=== PATIENT | female | born 1945 | race Caucasian/White ===

== ENCOUNTER → 2023-08-25 15:01 | Outpatient (REF) | payer OTHER, SELFPAY ==
[2023-08-25 15:04] LABS: % Basophils 0.6 % (0-2); % Eosinophils 2.4 % (0-6); % Immature Granulocytes 0.3 % (0-0.5); % Lymphocytes 21.3 % (20.5-51.1); % Monocytes 6.6 % (1.7-9.3); % Neutrophils 68.8 % (42.2-75.2); Absolute Eosinophils 0.2 10^3/uL (0-0.7); Absolute Lymphocytes 1.5 10^3/uL (1.2-3.4); Absolute Monocytes 0.5 10^3/uL (0.1-0.6); Absolute Neutrophils 4.9 10^3/uL (1.4-6.5); Hematocrit 39.5 % (37.0-47.0); Hemoglobin 13.9 g/dL (12.0-16.0); Mean Corp Hgb Conc. 35.2 g/dL (33.0-37.0); Mean Corpuscular Hgb 34.8 pg (27.0-31.0); Mean Corpuscular Volume 98.8 fL (81.0-99.0); Mean Platelet Volume 9.8 fL (7.4-10.4); Nucleated Red Blood Cells % 0 %; Platelet Count 165 10^3/uL (130-400); Red Cell Dist. Width 13.1 % (11.5-14.5); White Blood Cell Count 7.2 10^3/uL (4.8-10.8)
[2023-08-25 18:09] LABS: Folate 9.5 ng/ml (2.76-20); Vitamin B12 361 pg/ml (239-931)
== END ==
LOC: OIDL 15:01
PROVIDERS: ATTENDING PHYSICIAN Internal Medicine Hematology & Oncology
DX: C50.919 Malignant neoplasm of unspecified site of unspecified female breast (principal); D51.9 Vitamin B12 deficiency anemia, unspecified
CPT/HCPCS: 82607; 82746; 85025

== ENCOUNTER → 2024-01-01 11:43 | Outpatient (REF) | payer OTHER, SELFPAY | LOC: RAD 11:43 | PROVIDERS: ATTENDING PHYSICIAN Internal Medicine; FAMILY PHYSICIAN Internal Medicine | DX: R05.1 Acute cough (principal) | CPT/HCPCS: 71046 ==

== ENCOUNTER → 2024-02-02 07:11 | Outpatient (REF) | payer OTHER, SELFPAY | LOC: HWWDC 07:11 | PROVIDERS: ATTENDING PHYSICIAN Internal Medicine | DX: Z12.31 Encounter for screening mammogram for malignant neoplasm of breast (principal) | CPT/HCPCS: 77063; 77067 ==

== ENCOUNTER → 2024-02-09 09:33 | Outpatient (REF) | payer OTHER, SELFPAY | LOC: WDC 09:33 | PROVIDERS: ATTENDING PHYSICIAN Internal Medicine | DX: R92.8 Other abnormal and inconclusive findings on diagnostic imaging of breast (principal) | CPT/HCPCS: 77065 ==

== ENCOUNTER → 2024-02-16 06:24 | Outpatient (REF) | payer OTHER, SELFPAY | LOC: WDC 06:24 | PROVIDERS: ATTENDING PHYSICIAN Internal Medicine | DX: R92.1 Mammographic calcification found on diagnostic imaging of breast (principal) | CPT/HCPCS: 88305; 19081; 76098; A4648 ==

== ENCOUNTER → 2024-02-16 14:15 | Outpatient (REF) | payer OTHER, SELFPAY ==
[2024-02-16 14:59] LABS: % Basophils 0.6 % (0-2); % Eosinophils 2.6 % (0-6); % Immature Granulocytes 0.3 % (0-0.5); % Lymphocytes 19.6 % (20.5-51.1); % Monocytes 7.4 % (1.7-9.3); % Neutrophils 69.5 % (42.2-75.2); Absolute Eosinophils 0.2 10^3/uL (0-0.7); Absolute Lymphocytes 1.3 10^3/uL (1.2-3.4); Absolute Monocytes 0.5 10^3/uL (0.1-0.6); Absolute Neutrophils 4.8 10^3/uL (1.4-6.5); Hematocrit 38.9 % (37.0-47.0); Hemoglobin 13.9 g/dL (12.0-16.0); Mean Corp Hgb Conc. 35.7 g/dL (33.0-37.0); Mean Corpuscular Hgb 35.6 pg (27.0-31.0); Mean Corpuscular Volume 99.7 fL (81.0-99.0); Mean Platelet Volume 9.9 fL (7.4-10.4); Nucleated Red Blood Cells % 0 %; Platelet Count 146 10^3/uL (130-400); Red Cell Dist. Width 13.5 % (11.5-14.5); White Blood Cell Count 6.9 10^3/uL (4.8-10.8)
[2024-02-16 16:18] LABS: Folate 16.2 ng/ml (2.76-20); Vitamin B12 413 pg/ml (239-931)
== END ==
LOC: OIDL 14:15
PROVIDERS: ATTENDING PHYSICIAN Internal Medicine Hematology & Oncology
DX: C50.919 Malignant neoplasm of unspecified site of unspecified female breast (principal)
CPT/HCPCS: 82607; 82746; 85025

== ENCOUNTER → 2024-03-14 11:20 | Outpatient (REF) | payer OTHER, SELFPAY | LOC: WDC 11:20 | PROVIDERS: ATTENDING PHYSICIAN Surgery; FAMILY PHYSICIAN Internal Medicine | DX: D05.92 Unspecified type of carcinoma in situ of left breast (principal) | CPT/HCPCS: 19281; A4648 ==

== ENCOUNTER 2024-03-15 06:13 | Day surgery (SDC) | payer OTHER, SELFPAY ==
[2024-03-04 09:45] LABS: % Basophils 0.5 % (0-2); % Eosinophils 2.7 % (0-6); % Immature Granulocytes 0.3 % (0-0.5); % Lymphocytes 15.9 % (20.5-51.1); % Monocytes 7.1 % (1.7-9.3); % Neutrophils 73.5 % (42.2-75.2); Absolute Eosinophils 0.2 10^3/uL (0-0.7); Absolute Lymphocytes 1.1 10^3/uL (1.2-3.4); Absolute Monocytes 0.5 10^3/uL (0.1-0.6); Absolute Neutrophils 4.9 10^3/uL (1.4-6.5); Hematocrit 38.7 % (37.0-47.0); Hemoglobin 13.6 g/dL (12.0-16.0); Mean Corp Hgb Conc. 35.1 g/dL (33.0-37.0); Mean Corpuscular Hgb 35.4 pg (27.0-31.0); Mean Corpuscular Volume 100.8 fL (81.0-99.0); Mean Platelet Volume 9.5 fL (7.4-10.4); Nucleated Red Blood Cells % 0 %; Platelet Count 150 10^3/uL (130-400); Red Blood Cell Count 3.84 10^6/uL (4.20-5.40); Red Cell Dist. Width 13.2 % (11.5-14.5); White Blood Cell Count 6.6 10^3/uL (4.8-10.8)
[2024-03-04 12:00] LABS: Prealbumin (Transthyretin) 15.6 mg/dl (17.6-36.0)
[2024-03-04 12:19] LABS: Vitamin D, 25-OH*** 25.3 ng/mL (30-80)
[2024-03-04 15:05] LABS: ALT (SGPT) 17 U/L (0-35); AST (SGOT) 28 U/L (14-36); Alkaline Phosphatase 84 U/L (38-126); Blood Urea Nitrogen 15 mg/dl (7-17); Calcium 9.5 mg/dl (8.4-10.2); Carbon Dioxide 23 mmol/L (22-30); Chloride 107 mmol/L (98-107); Glucose 91 mg/dl (70-99); Potassium 4.2 mmol/L (3.5-5.1); Sodium 143 mmol/L (135-145); Total Bilirubin 0.9 mg/dl (0.2-1.3); Total Protein 6.8 g/dl (6.3-8.2); eGFR > 60.00
[2024-03-15 06:10] VITALS: BMI 30.1
[2024-03-15 06:15] VITALS: BP 158/100
[2024-03-15 06:37] VITALS: BMI 30.1
[2024-03-15] MEDS: TYLENOL 1000 MG PO (06:44)
[2024-03-15] MEDS: LOVENOX 40 MG SC (06:47)
[2024-03-15 08:48] VITALS: BP 110/67
[2024-03-15 09:00] VITALS: BP 125/67
[2024-03-15 09:15] VITALS: BP 134/83
[2024-03-15 09:30] VITALS: BP 143/97
== END 2024-03-15 10:30 | disposition home or self-care (01) ==
LOC: SDS 06:13
PROVIDERS: ATTENDING PHYSICIAN Surgery; FAMILY PHYSICIAN Internal Medicine
DX: D05.12 Intraductal carcinoma in situ of left breast (principal); Z17.0 Estrogen receptor positive status [ER+]
CPT/HCPCS: 19301; 88305; 88307; 36415; 76098; 80053; 82306; 84134; 85025; A4648; L8000

== ENCOUNTER → 2024-04-17 08:35 | Outpatient (REF) | payer OTHER, SELFPAY | LOC: RAD 08:35 | PROVIDERS: ATTENDING PHYSICIAN Internal Medicine Hematology & Oncology; FAMILY PHYSICIAN Internal Medicine | DX: C50.919 Malignant neoplasm of unspecified site of unspecified female breast (principal); D51.9 Vitamin B12 deficiency anemia, unspecified; D52.9 Folate deficiency anemia, unspecified; M85.88 Other specified disorders of bone density and structure, other site; Z78.0 Asymptomatic menopausal state | CPT/HCPCS: 77080 ==

== ENCOUNTER → 2024-04-30 14:27 | Outpatient (REF) | payer OTHER, SELFPAY | LOC: RAD 14:27 | PROVIDERS: ATTENDING PHYSICIAN Internal Medicine | DX: R05.8 Other specified cough (principal); J31.0 Chronic rhinitis | CPT/HCPCS: 71046 ==

== ENCOUNTER 2024-05-29 06:34 | Outpatient (RCR) | payer OTHER, SELFPAY | END 2024-05-29 23:59 | disposition home or self-care (01) | LOC: RPT 06:34 | PROVIDERS: ATTENDING PHYSICIAN Internal Medicine Hematology & Oncology; FAMILY PHYSICIAN Internal Medicine | DX: I97.2 Postmastectomy lymphedema syndrome (principal); C50.912 Malignant neoplasm of unspecified site of left female breast; C50.911 Malignant neoplasm of unspecified site of right female breast; Z73.6 Limitation of activities due to disability; D51.9 Vitamin B12 deficiency anemia, unspecified; D52.9 Folate deficiency anemia, unspecified; G62.9 Polyneuropathy, unspecified | CPT/HCPCS: 97162; 97535 ==

== ENCOUNTER 2024-06-14 17:56 | Inpatient (IN) | payer OTHER, SELFPAY ==
[2024-06-14] VITALS (9 sets, daily range): BP systolic 130–167; BP diastolic 75–108; BMI 31.3; BMI 30.2
--- NOTE | 2024-06-14 13:24 | ED.GENMED ---
History of Present Illness
General
Chief Complaint: Head Injury
Source: patient
Time Seen by Provider: 06/14/24 12:59
History of Present Illness
History of Present Illness:
79yoF with a history of atrial fibrillation on Pradaxa, breast cancer s/p radiation, hypertension, hyperlipidemia, and hypothyroidism presenting for evaluation after a head injury. Patient started to not feel well last night with nausea and
vomiting. She has vomited 'a lot' since then. She got her nails done at her home this afternoon. She had an episode of vomiting afterwards. She was in her bedroom when she bent over and hit her head on the dresser. She is unsure if she lost
consciousness. No preceding dizziness. She denies any chest pain, shortness of breath, fevers, chills, diarrhea.
Past History
Past History
ED Past Medical History: Arrthythmia (Afib)
Patient has exhibited threatening behavior?: No
Social History
Personal: Single
Living: alone
Employment: Retired
Phy Exam
General Physical Exam
General Presentation: no apparent distress
General age: appears stated age
General Skin: warm and dry
General Habitus: normal
General Mental: alert
ENT Exam
ENT Exam: other (Large (approx 12cm) curved scalp laceration with flap. No exposed skull. Minimal venous oozing noted.)
Eye Exam
Eye Exam: PERRL
Cardiovascular Exam
Cardiovascular Exam: irregularly irregular and tachycardia
Pulmonary Exam
Pulmonary Exam: lungs clear and no respiratory distress
Gastrointestinal Exam
Gastrointestinal Exam: non tender, soft and non distended
Neurological Exam
Neurological Exam: alert
Nani Coma Scale
Eye Opening: Spontaneous
Verbal Response: Oriented
Motor Response: Obeys Commands
GCS Total Score: 15
Skin Exam
Skin Exam: normal color and warm/dry
Psychiatric Exam
Psychiatric Exam: normal mood/affect
Course
Orders/Labs/Results
Orders:
Orders
06/14/24 12:38
CT Head W/o Iv Contrast Urgent
Comment: on Pradaxa
Reason For Exam: head injury, unsure LOC
06/14/24 12:40
CT Cervical Spine W/o Iv Contr Urgent
Comment:
Reason For Exam: fall, neck pain
06/14/24 13:22
Electrocardiogram (*1) Urgent
Reason for Study: Other
Other Reason for Exam: nausea
Cardiac Monitoring- Treatment ONCE
EKG- Treatment ONCE
06/14/24 13:43
Electrocardiogram (*1) Urgent
Reason for Study: QTc Monitoring
EKG- Treatment ONCE
06/14/24 13:46
Complete Blood Count/With Diff Urgent
Comprehensive Metabolic Panel Urgent
Magnesium Urgent
PTT Urgent
Prothrombin Time Urgent
Troponin I Urgent
06/14/24 14:37
Ondansetron Injectable [Zofran] 4 mg IV NOW STA
06/14/24 15:12
0.9% Sodium Chloride 500 ml [Nss] 500 ml IV BOLUS
06/14/24 17:06
Metoprolol Xl [Toprol Xl] 100 mg PO NOW STA
Abnormal Lab Results
06/14/24
13:46
WBC 12.7 H 10^3/uL
(4.8-10.8)
RBC 4.11 L 10^6/uL
(4.20-5.40)
MCV 103.4 H fL
(81.0-99.0)
MCH 34.8 H pg
(27.0-31.0)
Absolute Neuts (auto) 12.2 H 10^3/uL
(1.4-6.5)
Absolute Lymphs (auto) 0.2 L 10^3/uL
(1.2-3.4)
Neutrophils % 96.5 H %
(42.2-75.2)
Lymphocytes % 1.7 L %
(20.5-51.1)
Monocytes % 1.3 L %
(1.7-9.3)
PT 16.3 H Sec
(11.4-14.6)
APTT 39.8 H Sec
(23.4-35.0)
BUN 24 H mg/dl
(7-17)
Glucose 125 H mg/dl
(70-99)
06/14/24 13:46
06/14/24 13:46
Vital Signs
Initial and Last Documented VS:
Initial Vital Signs
Temp Pulse Resp BP Pulse Ox
97.7 F 73 16 167/108 96
06/14/24 12:44 06/14/24 12:44 06/14/24 12:44 06/14/24 12:44 06/14/24 12:44
Last Documented Vital Signs
Temp Pulse Resp BP Pulse Ox
97.7 F 104 25 146/79 90
06/14/24 12:44 06/14/24 16:15 06/14/24 16:15 06/14/24 16:00 06/14/24 15:45
Procedures
Laceration Closure
Scalp:
Size of Wound in cm: 12
Description of Wound Edges: flap-well vascularized
Preparation: cleaned with saline
Anesthesia: 1% Lidocaine with epi
Wound exploration: extensive cleaning of contaminated wound and explored to base- no FB
Type of Closure: single layer closure
Skin Closure Material: skin wendy
Number of sutures: 17
MDM/Problems Addressed
Differential Diagnosis Includes:
79yoF here after a mechanical fall this afternoon. Arrives with a large scalp laceration from hitting her head against a dresser. Currently on Pradaxa. Also c/o n/v since last night. VSS. Large curved laceration present to scalp with flap. No other
signs of trauma on exam. Differential diagnosis includes but is not limited to: laceration, concussion, skull fracture, intracranial hemorrhage, gastroenteritis, dehydration, ACS
Initial ED plan: Check cardiac labs, magnesium, EKG, and CT head/CT cervical spine.
*EKG
Interpreted by ED Provider?: Yes
EKG Intrepretation Date: 06/14/24
Heart Rate: 114
Rate: tachycardiac
Rhythm: a-fib
[place]: left axis deviation
Ischemia: T-wave inversion (ST/T wave abnormality seen in V3-V6 and leads I and aVL)
*Critical Care Note
Total Time (30-74mins, 75-104mins- exclusive of procedures): Not Applicable
Update Note
Update Note:
Scalp laceration repaired as above. CT head and cervical spine negative for traumatic injuries. Labs reveal a leukocytosis with a white count of 12.7 which is likely reactive secondary to vomiting. EKG shows rapid atrial fibrillation with ST/T
wave changes in lateral leads which appear worse from prior EKG. Troponin WNL. Heart rate persistently in the 110 range during ED stay. IV fluid bolus ordered and she was admitted for observation.
ED Attending Note
-
Portions of this chart may have been created with voice recognition software.� Occasional wrong word or��sound alike� substitutions may have occurred due to the inherent limitations of voice recognition software.
Discharge Plan
Departure
Patient Disposition: Admit
Date of Disposition: 06/14/24
Time of Disposition: 16:22
Presentation/result/management discussed w/ accepting MD/DO: Hospitalist
Discharge Problem:
Laceration of scalp, Nausea & vomiting, Atrial fibrillation with RVR, Nonspecific abnormal electrocardiogram (ECG)
Prescriptions:
No Action
verapamil 180 MG tablet extended release
180 mg PO DAILY
levothyroxine 75 MCG tablet
75 mcg PO DAILY
metoprolol succinate 100 MG tablet extended release 24 hr
100 mg PO HS
losartan 25 MG tablet
25 mg PO DAILY
dabigatran etexilate [Pradaxa] 150 MG capsule
150 mg PO BID
cholecalciferol (vitamin D3) [Vitamin D3] 50 mcg (2,000 unit) Capsule
50 mcg PO DAILY
letrozole 2.5 mg tablet
2.5 mg PO DAILY
Referrals:
Jair Chilel MD [Family Provider] -
Interventions
Interventions:
*Risk Screen - Suicide Last Done: 06/14/24 12:44
*Neglect/Abuse Screening Last Done: 06/14/24 12:44
ED- Neurological Assessment Last Done: 06/14/24 14:33
ED-Skin Assessment Last Done: 06/14/24 14:33
Discharge Date and Time
Print Language: TAJIK
[2024-06-14 14:25] LABS: % Basophils 0.2 % (0-2); % Immature Granulocytes 0.3 % (0-0.5); % Lymphocytes 1.7 % (20.5-51.1); % Monocytes 1.3 % (1.7-9.3); % Neutrophils 96.5 % (42.2-75.2); Absolute Lymphocytes 0.2 10^3/uL (1.2-3.4); Absolute Monocytes 0.2 10^3/uL (0.1-0.6); Absolute Neutrophils 12.2 10^3/uL (1.4-6.5); Hematocrit 42.5 % (37.0-47.0); Hemoglobin 14.3 g/dL (12.0-16.0); Mean Corp Hgb Conc. 33.6 g/dL (33.0-37.0); Mean Corpuscular Hgb 34.8 pg (27.0-31.0); Mean Corpuscular Volume 103.4 fL (81.0-99.0); Mean Platelet Volume 9.6 fL (7.4-10.4); Nucleated Red Blood Cells % 0 %; Platelet Count 130 10^3/uL (130-400); Red Blood Cell Count 4.11 10^6/uL (4.20-5.40); Red Cell Dist. Width 13.6 % (11.5-14.5); White Blood Cell Count 12.7 10^3/uL (4.8-10.8)
[2024-06-14 14:36] LABS: INR 1.28; PT 16.3 Sec (11.4-14.6)
[2024-06-14 14:37] LABS: APTT 39.8 Sec (23.4-35.0)
[2024-06-14] MEDS: ZOFRAN 4 MG IV ×2 (14:41→22:39)
[2024-06-14 15:35] LABS: ALT (SGPT) 20 U/L (0-35); AST (SGOT) 29 U/L (14-36); Albumin 4.2 g/dl (3.5-5.0); Alkaline Phosphatase 67 U/L (38-126); Blood Urea Nitrogen 24 mg/dl (7-17); Calcium 9.1 mg/dl (8.4-10.2); Carbon Dioxide 24 mmol/L (22-30); Chloride 106 mmol/L (98-107); Estimated Creatinine Clearance 56 ml/min; Glucose 125 mg/dl (70-99); Magnesium 1.8 mg/dl (1.6-2.3); Potassium 3.8 mmol/L (3.5-5.1); Sodium 142 mmol/L (135-145); Total Bilirubin 0.9 mg/dl (0.2-1.3); Total Protein 7.2 g/dl (6.3-8.2); eGFR > 60.00
[2024-06-14 15:40] LABS: Troponin I < 0.012 ng/ml
[2024-06-14] MEDS: NSS 500 IV ×2 (15:48→23:36)
--- NOTE | 2024-06-14 17:01 | HPS.HSE ---
Family Physician
-
Family Physician: Jair Chilel
Chief Complaint
-
Fall and hit her head
History of Present Illness
HPI
79F lives alone HX AF on Pradaxa, breast cancer s/p XRT, hypertension, hyperlipidemia, and hypothyroidism seen at ER:
- evaluation after a head injury
- not feel well last night with nausea and vomiting - has vomited 'a lot' since then.
- she got her nails done at her home this afternoon also had an episode of vomiting afterwards.
- while in her bedroom when she bent over and hit her head on the dresser.
- she is unsure if she lost consciousness.
- she presented with large scalp laceration which was stapled.
ROS
No preceding dizziness.
denies any chest pain, shortness of breath, fevers, chills, diarrhea.
Medical History
Past Medical History
Past Medical History: Reports Arrhythmia (chr AF on Prdexa and BB ), HTN, Hypercholesterolemia and Hypothyroidism
Past Surgical History: Reports Other
Social History
Alcohol: None
Drug: None
Personal: Single
Living: Alone
Family History
Family History: Not pertinent
Allergies / Home Medications
Allergies reflects when Allergies were last updated in [facility].
Home Medications with original date entered in [facility]
Allergy/Medication List:
Allergies
Allergy/AdvReac Type Severity Reaction Status Date / Time
EDWARD Inhibitors Allergy cough Verified 06/14/24 12:57
adhesive Allergy skin rash Verified 06/14/24 12:57
erythromycin base Allergy Redness, Verified 06/14/24 12:57
[Erythromycin Base] swelling
olmesartan [From Benicar] Allergy COUGH Verified 06/14/24 12:57
pollen extracts Allergy SEASONAL Verified 06/14/24 12:57
ALLERGIES
Home Medications
levothyroxine 75 mcg tablet 75 mcg PO DAILY Thyroid 08/18/17
verapamil 180 mg tablet,extended release 180 mg PO DAILY Blood pressure 08/18/17
metoprolol succinate 100 mg tablet,extended release 24 hr 100 mg PO HS Blood pressure 03/09/18
dabigatran etexilate 150 mg capsule (Pradaxa) 150 mg PO BID Blood clot prevention/tx 03/04/22
losartan 25 mg tablet 25 mg PO DAILY 03/04/22
cholecalciferol (vitamin D3) 50 mcg (2,000 unit) capsule (Vitamin D3) 50 mcg PO DAILY 03/15/24
letrozole 2.5 mg tablet 2.5 mg PO DAILY 06/14/24
Review of Systems
-
Constitutional: Reports No Symptoms
EENT: Reports No Symptoms
Respiratory: Reports No Symptoms
Cardiac: Reports No Symptoms
Abdomen/GI: Reports No Symptoms
: Reports No Symptoms
Musculoskeletal: Reports No Symptoms
Skin: Reports No Symptoms
Neurological: Reports No Symptoms
Endocrine: Reports No Symptoms
Hematologic/Lymphatic: Reports No Symptoms
Psych: Reports No Symptoms
Physical Exam
Vital Signs
Vital Signs
Temp Pulse Resp BP Pulse Ox
97.7 F 104 25 146/79 90
06/14/24 12:44 06/14/24 16:15 06/14/24 16:15 06/14/24 16:00 06/14/24 15:45
Physical Exam
General: No Apparent Distress, Comfortable and Conversant
HEENT: NormoCephalic (large stapled laceration at Lt scalp ) and PERRLA
Respiratory: Clear; No Wheezes, Rales or Rhonchi
Cardiac: S1/S2, Irregular Rhythm and Tachycardia
Breast: Deferred by me
GI: Soft, Non Tender, Non Distended and Normal Bowel Sounds
Rectal: Deferred by Provider
Genito-urinary: Deferred by me
Musculoskeletal: No Edema
Skin: Other (as above )
Neuro: AO x 3, No Motor Deficits and Nonfocal/grossly intact
Psych: Calm
Laboratory Results
-
06/14/24 13:46
06/14/24 13:46
Laboratory Results
PT 16.3 Sec (11.4-14.6) H 06/14/24 13:46
INR 1.28 06/14/24 13:46
APTT 39.8 Sec (23.4-35.0) H 06/14/24 13:46
Total Bilirubin 0.9 mg/dl (0.2-1.3) 06/14/24 13:46
AST 29 U/L (14-36) 06/14/24 13:46
ALT 20 U/L (0-35) 06/14/24 13:46
Alkaline Phosphatase 67 U/L (38-126) 06/14/24 13:46
Troponin I < 0.012 ng/ml 06/14/24 13:46
Data Reviewed
-
CT Scan: Report Reviewed by me
Lab Data: Labs Reviewed by me
Old Records: Reviewed
Impression/Plan
-
Data
03/04/24 06/14/24
09: 13:46
WBC 6.6 12.7 H
Hgb 13.6 14.3
MCV 100.8 H
Plt Count 130
INR 1.28
BUN 24 H
Creatinine 0.8
eGFR > 60.00
Troponin I < 0.012
CXR:
EKG
ATRIAL FIBRILLATION WITH RAPID VENTRICULAR RESPONSE
MINIMAL VOLTAGE CRITERIA FOR LVH, MAY BE NORMAL VARIANT ( [place] product )
ST and T WAVE ABNORMALITY, CONSIDER ANTEROLATERAL ISCHEMIA
ABNORMAL ECG
WHEN COMPARED WITH ECG OF 14-JUN-2024 13:39,
NO SIGNIFICANT CHANGE WAS FOUND
Confirmed by TAYLOR PEACOCK, EMILIANA ([id number]) on 06/14/2024 2:50:31 PM
10/30/23 ECHO
Estimated left ventricular ejection fraction is 50-55%.
Marked biatrial enlargement
Mild to moderate, eccentric mitral regurgitation.
Mildly dilated ascending aorta.
Previous report 03/23/2021 LVEF was 45% with mild global hypokinesis, with similar mild-moderate MR.
CT Cervical Spine W/o Iv Contr
Straightening of the normal cervical lordotic curvature.
Degenerative changes.
No findings to suggest recent cervical spine fracture.
HCT
Small old lacunar infarct in the right thalamus.
No acute intracranial abnormality.
Last hospitalist admission:
DATE OF ADMISSION: 08/18/2017 - DATE OF DISCHARGE: 08/23/2017
DISCHARGE DIAGNOSES:
1. Right hip hematoma secondary to fall due to Pradaxa.
2. Acute blood loss anemia due to right hip hematoma, but did not require
transfusion.
3. History of permanent atrial fibrillation.
4. Hypertension.
5. Hypothyroidism.
ASSESSMENT & PLAN
Pending Rx reconciliation
Fall complicated by large scalp laceration s/p stapled.
- NEG HCT for acute pathology
- on chr Pradaxa for AF
- Neuro obs and check
- Repeat HCT with any AMS
Abnormal EKG but no significant change per Dr Goodwin report
Troponin WNL
Denies any chest pain, shortness of breath
- TLM monitor
- trend TPNI
HX chr AF with RVR
Pending Rx reconciliation
- on Pradaxa
- add IV Metoprol 5mg q6 Hr PRN for HR > 120
- cont. Metoprolol sux [address] then daily QAM instead of HS
Chronic condition
HX breast cancer s/p XRT on Letrozole
Benign hypertension on Losartan - stable
Hyperlipidemia not on statin ; check lipids
Hypothyroidism on LT4
DVT Px: on chr Pradaxa
Code: full
IP TLM
[2024-06-14] MEDS: TOPROL XL 100 MG PO (17:25)
--- NOTE | 2024-06-14 20:00 | PTCARENOTE ---
Pt received from ED at 1940. Pt pleasant, AAOX3, VSS, and able to ambulate into room with assistance X1. Pt presents with large laceration on the parietal area of the scalp noted to have 17 wendy and moderate amount of dried blood. Pt does not
complain of any nausea, dizziness, or pain at this time. Pt receptive to room and call ramon. Pt bed in lowest position and call ramon within reach. Pt educated on importance of call ramon usage and pt relays understanding and cooperation. Will
continue with current plan of care.
--- NOTE | 2024-06-14 20:30 | RR ---
A Rapid Response was called on this patient, please see Rapid Response form.
Pt had an unwitnessed fall in the bathroom. Pt found laying on back with her head on the ground bleeding from existing laceration. Pt also bleeding from back of head. Pt started vomiting large amounts; pt turned on side and sat up. Pt had no loss of
consciousness. Rapid response team called. IV antiemetics administered, Pt taken for head CT, IVF bolus administered. Head laceration bleeding moderate amount, pressure dressing applied. Neuro checks Q4h.
--- NOTE | 2024-06-14 20:30 | FALL ---
Description of Fall:
Pt had an unwitnessed fall in the bathroom. Pt found laying on back with her head on the ground bleeding from existing laceration. Pt also bleeding from back of head. Pt started vomiting large amounts; pt turned on side and sat up. Pt had no loss of
consciousness. Rapid response team called.
Injuries Noted:
Back of head - laceration.
Action Taken:
Rapid response called. IV antiemetics administered. Head CT done.
Name of Provider Notified: LARISA Neri.
[2024-06-14] MEDS: PRADAXA 150 MG PO (21:07)
[2024-06-14] MEDS: TYLENOL 650 MG PO (21:07)
--- NOTE | 2024-06-14 22:40 | W.PN.UPDATE ---
Update Note
Progress Note Update
Rapid response
RN reported patient with unwitnessed fall. Upon arrival, patient was laying flat with head on the floor and admits head was hit. Noted blood on the floor, new laceration noted in posterior part of the head. Bleeding stopped after placing pressure.
Staple in place at scalp, oozing blood at the time of fall, which stopped as well. Dressing placed by RN. stable [place].
CT scan, labs and neurochecks per unit guidelines. Results noted.
CT scan No intracranial Hemorrhage.
Patient nauseous and vomited large amount once, IV Zofran given without relief, IV Compazine given once. Nausea vomiting subsided, IV Bolus 500 cc given, Fall precautions advised.
[2024-06-14 22:51] LABS: Hematocrit 40.1 % (37.0-47.0); Mean Corp Hgb Conc. 34.9 g/dL (33.0-37.0); Mean Corpuscular Hgb 35.3 pg (27.0-31.0); Mean Platelet Volume 9.7 fL (7.4-10.4); Platelet Count 142 10^3/uL (130-400); Red Blood Cell Count 3.97 10^6/uL (4.20-5.40); Red Cell Dist. Width 13.6 % (11.5-14.5); White Blood Cell Count 10.1 10^3/uL (4.8-10.8)
[2024-06-14 23:40] LABS: Blood Urea Nitrogen 27 mg/dl (7-17); Calcium 8.7 mg/dl (8.4-10.2); Carbon Dioxide 24 mmol/L (22-30); Chloride 104 mmol/L (98-107); Estimated Creatinine Clearance 55 ml/min; Glucose 115 mg/dl (70-99); Sodium 138 mmol/L (135-145); eGFR > 60.00
[2024-06-14] MEDS: COMPAZINE 10 MG IV (23:46)
[2024-06-15] VITALS (14 sets, daily range): BP systolic 124–182; BP diastolic 56–122; BMI 29.6
[2024-06-15] MEDS: TYLENOL PO ×4 (00:10→11:18)
[2024-06-15] MEDS: SYNTHROID 75 MCG PO (05:30)
[2024-06-15 07:01] LABS: Hematocrit 38.8 % (37.0-47.0); Hemoglobin 12.8 g/dL (12.0-16.0); Mean Corpuscular Hgb 34.7 pg (27.0-31.0); Mean Corpuscular Volume 105.1 fL (81.0-99.0); Mean Platelet Volume 10.2 fL (7.4-10.4); Platelet Count 127 10^3/uL (130-400); Red Blood Cell Count 3.69 10^6/uL (4.20-5.40); Red Cell Dist. Width 13.7 % (11.5-14.5); White Blood Cell Count 9.3 10^3/uL (4.8-10.8)
[2024-06-15 07:34] LABS: ALT (SGPT) 20 U/L (0-35); AST (SGOT) 32 U/L (14-36); Albumin 3.7 g/dl (3.5-5.0); Alkaline Phosphatase 56 U/L (38-126); Blood Urea Nitrogen 23 mg/dl (7-17); Calcium 8.4 mg/dl (8.4-10.2); Carbon Dioxide 22 mmol/L (22-30); Chloride 106 mmol/L (98-107); Estimated Creatinine Clearance 63 ml/min; Glucose 122 mg/dl (70-99); HDL Cholesterol 40 mg/dl; LDL Cholesterol, Calculated 81 mg/dl; Potassium 3.8 mmol/L (3.5-5.1); Sodium 142 mmol/L (135-145); Total Bilirubin 0.8 mg/dl (0.2-1.3); Total Cholesterol 134 mg/dl (50-199); Total Protein 6.5 g/dl (6.3-8.2); Triglyceride 67 mg/dl (10-149); Very Low Density Lipoprotein 13 mg/dl (0-30); eGFR > 60.00
[2024-06-15 08:30] LABS: Glucose - Point of Care 113 mg/dl (70-99)
--- NOTE | 2024-06-15 08:59 | CON.NEURO ---
Neuro Assessment/Plan
Assessment
Abrupt onset aphasia
Most likely secondary to newly discovered left temporal intraparenchymal hemorrhage which is secondary to trauma.
Plan
Consult neurosurgery, done
Serial CTs of head to determine if expansion of the hemorrhage takes place
Evaluation of the patient in the intensive care setting
Reversal of the patient's usual dabigatran, with consideration for restart approximately 48 hours after symptomatology initiation
Goal of systolic blood pressure less than 140, greater than 100
Rehabilitation evaluations
Consider EEG
No clear indication patient would benefit from antiseizure medication at this time
Total Critical Care Time=�45 minutes.
The neurological system is affected and the action required by me to prevent further deterioration or potential was control over the item listed first in the Impressions and Recommendations section of this note.
I was present and personally examined the patient.� I discussed patient care with other professional health care providers.
Will follow
Consultation
Order
Date of Consultation: 06/15/24
Requesting Provider: Hospitalists
Reason for Consult: Stroke alert
Subjective/Objective
Subjective Data
Date of Service: June 15, 2024
Patient presented to this hospital's emergency department after having a fall at home. This fall took place after feeling unwell and experiencing nausea and emesis. The patient reported that she did strike her head leading to more nausea and
emesis. Subsequently, after presenting to this hospital, the patient fell in an unwitnessed way. The patient again struck her head with a new laceration in the posterior head. Due to continued emesis, the patient was given antiemetics. She
developed aphasia this morning leading to this consultation. The patient herself is unable to provide her own medical history.
Objective Data
Vital Signs
Temp Pulse Resp BP Pulse Ox
37.7 C 108 20 154/100 94
06/15/24 06:51 06/15/24 06:51 06/15/24 06:51 06/15/24 06:51 06/15/24 06:51
Lab Results
06/15/24 06:10
06/15/24 06:10
PT 16.3 Sec (11.4-14.6) H 06/14/24 13:46
INR 1.28 06/14/24 13:46
APTT 39.8 Sec (23.4-35.0) H 06/14/24 13:46
Sodium 142 mmol/L (135-145) 06/15/24 06:10
Potassium 3.8 mmol/L (3.5-5.1) 06/15/24 06:10
BUN 23 mg/dl (7-17) H 06/15/24 06:10
Glucose 122 mg/dl (70-99) H 06/15/24 06:10
Calcium 8.4 mg/dl (8.4-10.2) 06/15/24 06:10
LDL Cholesterol, Calc 81 mg/dl 06/15/24 06:10
Patient Allergies
EDWARD Inhibitors Allergy (Verified 06/14/24 12:57)
cough
adhesive Allergy (Verified 06/14/24 12:57)
skin rash
erythromycin base [Erythromycin Base] Allergy (Verified 06/14/24 12:57)
Redness, swelling
olmesartan [From Benicar] Allergy (Verified 06/14/24 12:57)
COUGH
pollen extracts Allergy (Verified 06/14/24 12:57)
SEASONAL ALLERGIES
CVA Assessment
Onset of Stroke Symptoms
Onset of symptoms known: No
Date of onset of symptoms: 06/15/24
Time of onset of symptoms: 08:00
Time pt last seen normal is known: Yes
Date last time pt seen normal: 06/15/24
Time last time pt seen normal: 04:00
NIH Stroke Score
Level of Consciousness: 1 - Arousable
LOC Questions: 1-Answers one correctly
LOC Commands: 1-Performs one correctly
Best Horizontal Gaze: 0-Normal
Visual [place]: 0=Normal, no visual loss
Facial Palsy: 0=Normal, symmetrical
Motor - Right Arm: 0=No drift 10 seconds
Motor - Left Arm: 0=No drift 10 seconds
Motor - Right Le-No drift 5 seconds
Motor - Left Le-No drift 5 seconds
Limb Ataxia: 0-Absent
Sensation: 0-Normal
Best Language: 1-Mild aphasia
Dysarthria: 0-Normal
Extinction and Inattention: 0-No abnormality
Total Score:: 4
Tenecteplase Contraindications
Inclusion and Exclusion criteria reviewed: Yes
Reasons for NON-Tx with Thrombolytics ABSOLUTE Exclusions: Evidence of intracranial hemorrhage on pre-treatment CT head
IAT Contraindications: Intracranial hemorrhage on CT
Review of Systems
-
Unable to obtain full review of systems at this time due to: Lethargy
History Source: Patient
All other systems: Reviewed and negative
Neuro: Negative Dizzy or Headache
Physical Exam
-
General: No Apparent Distress and Appears Stated Age
Eyes: Round OU, [place] Conjunctivae and No Ptosis; Negative Able to visualize OU
HEENT: Anicteric, Moist Mucous Membranes and Other (Head wrapped well with gauze)
Neck: Full Range of Motion
Respiratory: No Dyspnea
Cardiac: No JVD
GI: Non-distended
Skin: Unremarkable
Extremities: No Clubbing, No Cyanosis and No Edema
Psych: Negative Intact Judgement/Insight
Extended Neurological Exam
Mood & Affect: Mood Unremarkable and Affect Unremarkable
Attention Span & Concentration: Awake, Alert, Interactive, Moderate Difficulty with 2 Step Request and Other (Minimal difficulty with one-step requests)
Memory: Able to Recall (own name), Reduced (For location) and Unable to Recall Personal History
Tremor: Hand Tremor Absent and Head Tremor Absent
Involuntary Movement: None
Speech: Quality Unremarkable and Severely Reduced Output; Negative Dysarthric
Cranial Nerve II: Left Eye: Pupillary Reactivity Unremarkable, Pupillary Size Unremarkable and Visual Lezama Intact
Cranial Nerve II: Right Eye: Pupillary Reactivity Unremarkable, Pupillary Size Unremarkable and Visual Lez[place] Intact
Cranial Nerves III, IV, : Extraocular Movement: Extraocular Movement Full in all Directions
Cranial Nerve VII: Facial Symmetry: Normal Facial Symmetry
Cranial Nerve VIII: Hearing: Unremarkable Hearing to Normal Conversational Volume
Cranial Nerves IX, X: Palate Movement: Palate Elevation Symmetric
Cranial Nerve XI: Shoulder Shrug: Unremarkable
Cranial Nerve XII: Tongue Protusion: Midline
Muscle Strength, Overall: Full Throughout
Muscle Bulk & Tone: Bulk Unremarkable and Tone Unremarkable
Pronator Drift: No Drift in Upper Extremities
Deep Tendon Reflexes: Trace Throughout
Touch Sensation: Unremarkable
Coordination: [id number] Testing Unremarkable
Babinski Sign: Absent Bilaterally
Gait & Station: Unable to Assess
Data Reviewed
-
CT Head: Report Reviewed and Image Reviewed
Labs: Report Reviewed
Reviewed with: Physician, Nurse and Patient
Old Records: Summarized
Medications
-
Active Medications
Generic Name Dose Route Start Last Admin
Trade Name Freq PRN Reason Stop Dose Admin
Acetaminophen 650 mg 06/14/24 20:00 06/15/24 04:00
Acetaminophen 325 Mg Tablet PO 07/12/24 19:59 Not Given
Q4HWA SUMI
Bisacodyl 10 mg 06/14/24 19:32
Bisacodyl 10 Mg Rectal Suppository RECTAL 07/12/24 19:31
[id number] PRN
constipation
Heparin Sodium (Porcine) 500 unit 06/14/24 23:15 06/15/24 00:57
Heparin Flush Pf (100 Unit/Ml) 5 Ml Syringe IV 07/12/24 23:14 500 unit
PER PROTOCOL SUMI Administration
Letrozole 2.5 mg 06/15/24 08:00
Letrozole 2.5 Mg (Non-Form) Tablet PO 07/13/24 07:59
DAILY SUMI
Levothyroxine Sodium 75 mcg 06/15/24 06:00 06/15/24 05:30
Levothyroxine 75 Mcg Tablet PO 07/13/24 05:59 75 mcg
DAILY @ 0600 SUMI Administration
Lidocaine 1 patch 06/15/24 08:00
Lidocaine 4% Topical Patch TOPICAL 07/13/24 07:59
DAILY SUMI
Protocol
Losartan Potassium 25 mg 06/15/24 08:00
Losartan 25 Mg Tablet PO 07/13/24 07:59
DAILY SUMI
Metoprolol Succinate 100 mg 06/15/24 22:00
Metoprolol 100 Mg Extended Release Tablet PO 07/13/24 21:59
HS SUMI
Patch Removal 1 patch 06/15/24 20:00
Remove Lidocaine Patch REMOVE 07/13/24 19:59
DAILY@2000 SUMI
Polyethylene Glycol 17 grams 06/14/24 19:32
Polyethylene Glycol Powder 17 Grams Packet PO 07/12/24 19:31
DAILYPRN PRN
constipation
Senna/Docusate Sodium 1 tablet 06/14/24 19:32
Docusate W/Senna (Margaret-Colace) Tablet PO 07/12/24 19:31
BIDPRN PRN
constipation
Sodium Chloride 0 flush 06/14/24 20:00
Sodium Chloride 0.9% (Flush) Syringe IV 07/12/24 19:59
PER PROTOCOL SUMI
Home Medications
�Medication �Instructions �Recorded
levothyroxine 75 mcg tablet 75 mcg PO DAILY Thyroid 08/18/17
verapamil 180 mg tablet,extended 180 mg PO DAILY Blood pressure 08/18/17
release
metoprolol succinate 100 mg 100 mg PO HS Blood pressure 03/09/18
tablet,extended release 24 hr
dabigatran etexilate 150 mg 150 mg PO BID Blood clot 03/04/22
capsule (Pradaxa) prevention/tx
losartan 25 mg tablet 25 mg PO DAILY 03/04/22
cholecalciferol (vitamin D3) 50 50 mcg PO DAILY 03/15/24
mcg (2,000 unit) capsule (Vitamin
D3)
letrozole 2.5 mg tablet 2.5 mg PO DAILY 06/14/24
Past History
Past History
ED Past Medical History: Arrthythmia (Afib), Cancer (Bilateral 1993, left breast DCIS 2023), CVA (Small left temporal intraparenchymal hemorrhage June 2024), HTN, Hypercholesterolemia, Hypothyroidism and Other (Osteoporosis, vitamin D deficiency)
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
2019)
Patient has exhibited threatening behavior?: No
Social History
Tobacco: Non-smoker
Alcohol: Occasional
Personal: Single
Living: alone
Employment: Retired
Family History
Family History: Other (Reviewed and noncontributory)
--- NOTE | 2024-06-15 09:00 | PTCARENOTE ---
Received pt. s/p rapid response into ICU rm [id number] w neuro to bedside[address] scan during rapid showing bleed; neuro checks initiated Q1H- pt. able to NINA; pupils 3mm/sluggish b/l; moderate expressive aphasia. Goal SBP per neuro <140; Cardene gtt not
initiated, BP already in goal range. Plan to transfer to [facility]; awaiting bed placement. Pt. informed on plan of care. Servicing Rep updated family contact via phone.
[2024-06-15] MEDS: PRADAXA PO (09:21)
--- NOTE | 2024-06-15 09:22 | RR ---
A Rapid Response was called on this patient, please see Rapid Response form. Upon assessment this morning pt was very sleepy. arousable to voice . Neuro check performed and GCS was 12. pt unable to answer questions, repetitive speech. bilateral
lower extremities weak. pupils 2 and sluggish. Rapid called. Pt taken to CT Scan by ICU nurses. Neurology at bedside post CT. Pt found to have bleeding on ct scan. Transferred to ICU.
--- NOTE | 2024-06-15 09:28 | CON.INTV ---
Consultation
Consultation Request
Date/Time Consultation Requested: 06/15/2024929
Date/Time Consultation Performed: 06/15/2024924
Requesting Provider: Dr. Stephen
Performing Provider: Dr. Pinon
Reason for Consultation: Acute IPH
Medical History
-
Chief Complaint: Fall
History of Present Illness:
79-year-old female non-smoker with a past medical history of right-sided breast cancer s/p mastectomy with lymphadenectomy, history of vertigo, chronic HFpEF, A-fib on Pradaxa, hypothyroidism, kidney cyst and moderate mitral regurgitation who
presents with fall out of bed this morning and hit the dresser. She was nauseous and vomiting the day prior. She is on sure if she lost consciousness during her fall. She denies any preceding chest pain, shortness of breath or dizziness.
Initially in the ER she was hypertensive to 167/108, pulse rate 73, breathing at 16 breaths/min, saturating 96% on room air and afebrile to 97.7 �F. Initial labs showed mild leukocytosis of 12.7, Hb 14.3, platelets 130, INR 1.28, troponin negative
at <0.[address] and glucose [address] Initial [address] head showed a small old lacunar infarct in the right thalamus with no acute intracranial abnormality. CT cervical spine showed no fracture. In the ER she was given IVF with NS 0.9% x 500cc. She was admitted
to telemetry for further management. Unfortunately on 06/14 in the evening hours she had an unwitnessed fall and was found laying flat with head on the floor and admitted that her head hit the ground. There was blood on the floor with a laceration
noted in the posterior part of her head. Bleeding stopped after holding pressure. Repeat CT head showed a posterior scalp contusion/laceration with no skull fracture and no acute intracranial hemorrhage. Patient developed expressive aphasia and a
stroke alert was called on the morning of 06/15, and CT head showed a 1.6 cm acute intraparenchymal hemorrhage in the posterior left temporal lobe. Neurology + neurosurgery were consulted. Patient transferred to the ICU for further care and
mica layer services consulted for additional management/recommendations.
When I saw the patient she was tachycardic to 110, BP 144/76, and she is saturating 94% on room air. She denies headache, chest pain, SOB, fevers or chills, although HPI/ROS is limited due to expressive aphasia. She is in no acute distress however.
PMHx: History of breast cancer/DCIS(ER positive), vertigo, knee osteoarthritis, chronic HFpEF, A-fib on Pradaxa, NICM, moderate MR, hypercholesterolemia, primary hypothyroidism, bilateral cataracts, kidney cyst
PSHx: Skin cancer resection, hysterectomy, cholecystectomy, right-sided total mastectomy with lymphadenectomy, left leg ruptured ACL s/p surgery, cataract surgery, left eye wart removal, torn rotator cuff surgery, port implantation, bilateral TKA,
left-sided localized lumpectomy (03/15/2024)
Past Medical History
Past Medical History: Other (Above as per HPI)
Past Surgical History: Other (Above as per HPI)
Social History
Tobacco: Non-smoker
Alcohol: Occasional (Social)
Drug: None
Family History
Family History: CAD (Father), Cancer (Mother: Cholangiocarcinoma) and Diabetes (Father)
Allergies / Home Medications
Allergies
Allergy/AdvReac Type Severity Reaction Status Date / Time
EDWARD Inhibitors Allergy cough Verified 06/14/24 12:57
adhesive Allergy skin rash Verified 06/14/24 12:57
erythromycin base Allergy Redness, Verified 06/14/24 12:57
[Erythromycin Base] swelling
olmesartan [From Benicar] Allergy COUGH Verified 06/14/24 12:57
pollen extracts Allergy SEASONAL Verified 06/14/24 12:57
ALLERGIES
Home Medications
�Medication �Instructions �Recorded �Confirmed �Last Taken �Type
levothyroxine 75 mcg tablet 75 mcg PO DAILY Thyroid 08/18/17 06/14/24 06/13/24 History
verapamil 180 mg tablet,extended 180 mg PO DAILY Blood pressure 08/18/17 06/14/24 06/13/24 History
release
metoprolol succinate 100 mg 100 mg PO HS Blood pressure 03/09/18 06/14/24 06/13/24 History
tablet,extended release 24 hr
dabigatran etexilate 150 mg 150 mg PO BID Blood clot 03/04/22 06/14/24 06/13/24 History
capsule (Pradaxa) prevention/tx
losartan 25 mg tablet 25 mg PO DAILY 03/04/22 06/14/24 06/13/24 History
cholecalciferol (vitamin D3) 50 50 mcg PO DAILY 03/15/24 06/14/24 06/13/24 History
mcg (2,000 unit) capsule (Vitamin
D3)
letrozole 2.5 mg tablet 2.5 mg PO DAILY 06/14/24 06/14/24 06/13/24 History
Review of Systems
-
Unable to Obtain full review of systems at this time due to: Acuity
Vitals / Labs / Diagnostic Testing
Vital Signs
Temp Pulse Resp BP Pulse Ox
99.8 F 108 20 154/100 94
06/15/24 06:51 06/15/24 06:51 06/15/24 06:51 06/15/24 06:51 06/15/24 06:51
Lab Data
06/15/24 06:10
Laboratory Results
06/14/24
13:46
PT 16.3 H
INR 1.28
APTT 39.8 H
Diagnostic Testing:
Physical Exam
-
HEENT: Anicteric and Other (Bandage wrapped around head)
Cardiovascular: S1/S2, Murmur (negative), Peripheral Edema (trace LE edema b/l) and Other (Tachycardic)
Respiratory: Wheeze (negative), Rales (negative), Rhonchi (negative) and Accessory Resp Muscle Use (negative)
GI: Soft, Non Distended, Non Tender and Normal Bowel Sounds
Neurology: Awake, Alert, Tremors (negative), Other (Demand Planner strength: 4/5 right upper extremity, 5/5 left upper extremity, plantarflexion: 4/5 bilaterally, unable to perform plantar-flexion as not understanding my question) and Other (Cranial nerve
exam was limited due to expressive aphasia: She was able to shrug shoulders, she was able to smile without any evidence of nasolabial flattening, able to protrude tongue out and move it laterally although this was a weak, intact sensation to her
arms, legs and face)
Skin: Warm and Dry
General: Respiratory Distress (negative), Comfortable, Fever (negative) and Chills (negative)
Assessment
-
Assessment: 79-year-old female non-smoker with a past medical history of right-sided breast cancer s/p mastectomy with lymphadenectomy, history of vertigo, chronic HFpEF, A-fib on Pradaxa, hypothyroidism, kidney cyst and moderate mitral
regurgitation who presents with fall out of bed this morning and hit the dresser. She was nauseous and vomiting the day prior. She is on sure if she lost consciousness during her fall. She denies any preceding chest pain, shortness of breath or
dizziness. Initially in the ER she was hypertensive to 167/108, pulse rate 73, breathing at 16 breaths/min, saturating 96% on room air and afebrile to 97.7 �F. Initial labs showed mild leukocytosis of 12.7, Hb 14.3, platelets 130, INR 1.28,
troponin negative at <0.012 and glucose [address] Initial [address] head showed a small old lacunar infarct in the right thalamus with no acute intracranial abnormality. CT cervical spine showed no fracture. In the ER she was given IVF with NS 0.9% x 500cc.
She was admitted to telemetry for further management. Unfortunately on 06/14 in the evening hours she had an unwitnessed fall and was found laying flat with head on the floor and admitted that her head hit the ground. There was blood on the floor
with a laceration noted in the posterior part of her head. Bleeding stopped after holding pressure. Repeat CT head showed a posterior scalp contusion/laceration with no skull fracture and no acute intracranial hemorrhage. Patient developed
expressive aphasia and a stroke alert was called on the morning of 06/15, and CT head showed a 1.6 cm acute intraparenchymal hemorrhage in the posterior left temporal lobe. Neurology + neurosurgery were consulted. Patient transferred to the ICU for
further care and mica layer services consulted for additional management/recommendations.
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
Impression:
#Traumatic (recurrent fall) acute intraparenchymal hemorrhage (1.[address] head on 06/15/2024)
#Confusion/expressive aphasia due to above
#Fall with posterior scalp contusion/laceration
#Thrombocytopenia (chronic with platelet count ranging between 65�200 for the last several years)
#Chronic lacunar infarct in right thalamus
#History of right-sided breast cancer s/p mastectomy + lymphadenectomy
#History of vertigo
#Chronic HFpEF
#A-fib on Pradaxa
Plan:
- Patient is being prepared to be transferred to [facility] trauma center
- Neurology and neurosurgery consulted - recs appreciated
- Patient received Praxbind today given that she takes Pradaxa and now with acute intraparenchymal hemorrhage
- Patient may need neurosurgical intervention for surgical decompression
- No evidence for midline shift at this time; hence no need for osmotic therapy at this juncture
- Strict BP goal with SBP<140mmHg ---> may need cardene gtt
- Maintain MAP>65
- Neurochecks q1hr + NIH SS; immediate CT head for any significant change in neurochecks or NIH stroke scale or neurological clinical status
- No current seizures seen, hence no need for AED at this time
- Monitor for fevers
- Will need PT/OT and MECHANICAL REPAIR WORKER --> Keep NPO for now; can do bedside RN swallow eval to see if safe for PO meds, but would not let pt eat until MECHANICAL REPAIR WORKER sees the pt
- Bedrest for now, and would keep HOB elevated to help reduce ICP
- Fall precautions
- Aspiration precautions
- Maintain SpO2 >90-94% with supplemental oxygen if needed
- Replete electrolytes with K>4, Mg>2
- Maintain euglycemia with goal BG 140-180
- Trend H/H and transfuse if needed to keep Hb>7g/dL; keep plt>100k
- prn nebulized bronchodilators - not currently bronchospastic
- No need for stress ulcer ppx given she is not intubated and no hx of GIB
- DVT ppx: SCDs for now
Patient has a bed and is awaiting transport to [facility]. Once transferred then we will sign off. Thank you for allowing us to be involved in the care of this patient.
Critical care statement: A total of 37 minutes of critical care time was provided for this patient today. This includes management of unstable vital signs, evaluation of the patient at bedside, reviewing the patient's pertinent medical records
including radiographs, microbiology, laboratory evaluations, and discussion with primary team, consultants, pharmacy, nutrition, physical therapy, case management, charge nurse, critical care nursing, and respiratory therapy.
Data:
CT head 06/15/2024:
Evaluation somewhat limited due to motion artifact.
Findings suspicious for approximate 1.6 cm acute intraparenchymal hemorrhage in the posterior left temporal lobe.
Cannot exclude small left anterior parafalcine acute subdural hematoma.
[2024-06-15] MEDS: IDARUCIZUMAB 50 IV ×2 (09:29→09:45)
--- NOTE | 2024-06-15 10:42 | W.PN.UPDATE ---
Update Note
Progress Note Update
Patient accepted to [facility]. I called the patient's sister, Michelle, to confirm that she consents for Vianey to be transferred. Vianey unfortunately is unable to consent herself given confusion with expressive aphasia due to acute
traumatic intraparenchymal hemorrhage. I answered all of Michelle's questions to her satisfaction.
[2024-06-15] MEDS: TRANDATE 10 MG IV (11:30)
--- NOTE | 2024-06-15 11:40 | PTCARENOTE ---
Report given to [facility] CELLULOSE INSULATION HELPER, Zoila. Neuro checks maintained Q1H- see flow sheet; no changes since previous assessment. In contact w MD team, plan to ground transport per MDs; transport arranged, awaiting for arrival.
[2024-06-15 11:53] LABS: Hemoglobin 12.6 g/dL (12.0-16.0); Mean Corp Hgb Conc. 34.1 g/dL (33.0-37.0); Mean Corpuscular Hgb 34.7 pg (27.0-31.0); Mean Corpuscular Volume 101.9 fL (81.0-99.0); Platelet Count 120 10^3/uL (130-400); Red Blood Cell Count 3.63 10^6/uL (4.20-5.40); Red Cell Dist. Width 13.7 % (11.5-14.5); White Blood Cell Count 8.6 10^3/uL (4.8-10.8)
[2024-06-15 11:55] LABS: INR 1.15
[2024-06-15 11:56] LABS: APTT 33.3 Sec (23.4-35.0); Fibrinogen 373 MG/DL (199-459)
--- NOTE | 2024-06-15 12:59 | PTCARENOTE ---
Transport to bedside; report given to transport team. Pt. discharged via stretcher w transport and continuum of care. No further needs from this RN.
--- NOTE | 2024-06-15 14:31 | W.DCSUMMARY ---
Discharge Summary
Discharge Data
Date of Admission: 06/14/24
Date of Discharge: 06/15/24
-
Pending Results: No
Hospital Course
79yoF with a history of atrial fibrillation on Pradaxa, breast cancer s/p radiation, hypertension, hyperlipidemia, and hypothyroidism presenting for evaluation after a head injury after hitting her head on the dresser. This was followed by not
feeling well along with nausea and vomitign. On arrivial to the hospital found to be in Afib and RVR along with this nausea/vomitng concern for concussion in the setting of head trauma she was admitted. She hada CT brain without evidence of
bleeding. Once getting to the medical floor from the ER, she had an unwitness fall. As laying flat with head on the floor and admits head was hit. Noted blood on the floor, new laceration noted in posterior part of the head. Bleeding stopped after
placing pressure. Staple in place at scalp, oozing blood at the time of fall, which stopped as well. Dressing placed by RN. CT brain without evidence of bleeding and pradaxa was continued. The following morning found to have worning mental status
with ocnfusion, stroke alert called, ct brain completed that demonstrated an parenchymal hemorrhage. Please see report below. Neurosurgery and neurology were stat called, neuro was already at bedside as this was a stroke alert. She was obviously not
a candidate for tPA in the setting of bleed and being on pradaxa. Neurosurgery rec to provide KCentra and Vit K not knowing that we had Paraxabind. Neurosurgery did rec transfer to [facility] under trauma. I spoke with Trauma surgeon at [facility], agreed and
accepted Vianey for transfer. He recommended Praxabind and no Kcentra/VitK for which neurology agreed with. She was then moved to the ICU for q1h neurochecks, CCB gtt was started to keep BP <140 per NSGY recs. She was eventually transferred to
[facility]. Sister Michelle agreed with transfer and was updated that Vianey had departed .
Sub
On the day of discharge she was confused, had a fall overnight
COuld not complete 12point ros due to confusion but she was opening her eyes and moving extremities. Per neuro she was aphasic as well
Objective
Physical Exam
Aphasic, opening eyes, no verbalizing to me, lifting up her arms and she is able to resist gravity
Scleral anicteric
Moist mucous membranes
No JVD
CTA bilateral
Normal S1-S2 no murmurs. tachycardic
Soft nontender nondistended bowel sounds active
No peripheral pitting edema
Moves extremities spontaneously
Awake when tapped on feet or shoulder, did not verbalize back to me
More than 30 minutes spent in discharge including
Final examination of the patient
Summarizing hospital stay
Instructions for continuing care to all relevant caregivers
Preparation of discharge records, prescriptions, and referral forms
Total time spent (in minutes): 80mins
Discharge Plan
-
Patient Disposition: Acute Care Hospital
Condition: Critical
Discharge Orders:
Discharge Patient (As Directed); Ordered 06/15/24
Ordered By: Yogesh Stephen
Discharge Date and Time
Discharge Date/Time: 06/15/24 13:05
Print Language: IRISH
[2024-06-17 15:29] LABS: Thrombin Time Results 19.3 sec (14.7-19.5)
== END 2024-06-15 13:05 | disposition short-term general hospital (02) | DRG 605 ==
LOC: ICU 17:56
PROVIDERS: Nurse Practitioner Gerontology; Physician Assistant; ADMITTING PHYSICIAN Internal Medicine; ATTENDING PHYSICIAN Hospitalist; CONSULT PHYSICIAN Psychiatry & Neurology Neurology; EMERGENCY PHYSICIAN Emergency Medicine; FAMILY PHYSICIAN Internal Medicine; OTHER PHYSICIAN Internal Medicine Critical Care Medicine
DX: S70.01XA Contusion of right hip, initial encounter (principal); D62 Acute posthemorrhagic anemia; I50.32 Chronic diastolic (congestive) heart failure; R47.01 Aphasia; W06.XXXA Fall from bed, initial encounter; I11.0 Hypertensive heart disease with heart failure; E03.9 Hypothyroidism, unspecified
CPT/HCPCS: 12004; 70450; 72125; 80048; 80053; 80061; 82962; 83735; 84484; 85025; 85027; 85384; 85610; 85670; 85730; 93005; 96361; 96374; 99285; J3490

== ENCOUNTER → 2024-06-27 11:47 | Outpatient (REF) | payer OTHER, SELFPAY ==
[2024-06-27 13:13] LABS: % Basophils 0.4 % (0-2); % Eosinophils 2.8 % (0-6); % Immature Granulocytes 0.3 % (0-0.5); % Lymphocytes 13.8 % (20.5-51.1); % Neutrophils 71.7 % (42.2-75.2); Absolute Eosinophils 0.2 10^3/uL (0-0.7); Absolute Lymphocytes 0.9 10^3/uL (1.2-3.4); Absolute Monocytes 0.7 10^3/uL (0.1-0.6); Absolute Neutrophils 4.8 10^3/uL (1.4-6.5); Hematocrit 36.7 % (37.0-47.0); Hemoglobin 12.1 g/dL (12.0-16.0); Mean Corpuscular Hgb 35.5 pg (27.0-31.0); Mean Corpuscular Volume 107.6 fL (81.0-99.0); Mean Platelet Volume 10.7 fL (7.4-10.4); Nucleated Red Blood Cells % 0 %; Platelet Count 181 10^3/uL (130-400); Red Blood Cell Count 3.41 10^6/uL (4.20-5.40); Red Cell Dist. Width 13.9 % (11.5-14.5); White Blood Cell Count 6.8 10^3/uL (4.8-10.8)
== END ==
LOC: OLABN 11:47
PROVIDERS: ATTENDING PHYSICIAN Student in an Organized Health Care Education/Training Program
DX: I10 Essential (primary) hypertension (principal); E03.9 Hypothyroidism, unspecified; S06.6X9S Traumatic subarachnoid hemorrhage with loss of consciousness of unspecified duration, sequela
CPT/HCPCS: 36415; 85025

== ENCOUNTER → 2024-06-28 11:26 | Outpatient (REF) | payer OTHER, SELFPAY ==
[2024-06-28 13:14] LABS: TSH 2.61 uIU/ml (0.47-4.68)
== END ==
LOC: OLABN 11:26
PROVIDERS: ATTENDING PHYSICIAN Student in an Organized Health Care Education/Training Program
DX: E03.9 Hypothyroidism, unspecified (principal); M62.81 Muscle weakness (generalized)
CPT/HCPCS: 36415; 84443

== ENCOUNTER → 2024-06-29 10:55 | Outpatient (REF) | payer OTHER, SELFPAY ==
[2024-06-29 15:16] LABS: Blood Urea Nitrogen 18 mg/dl (7-17); Calcium 9.3 mg/dl (8.4-10.2); Carbon Dioxide 25 mmol/L (22-30); Chloride 106 mmol/L (98-107); Glucose 85 mg/dl (70-99); Magnesium 1.8 mg/dl (1.6-2.3); Potassium 4.4 mmol/L (3.5-5.1); Sodium 137 mmol/L (135-145); eGFR > 60.00
== END ==
LOC: OLABN 10:55
PROVIDERS: ATTENDING PHYSICIAN Student in an Organized Health Care Education/Training Program
DX: E03.9 Hypothyroidism, unspecified (principal)
CPT/HCPCS: 36415; 80048; 83735

== ENCOUNTER → 2024-07-05 09:12 | Outpatient (REF) | payer OTHER, SELFPAY | LOC: HWRAD 09:12 | PROVIDERS: ATTENDING PHYSICIAN Neurological Surgery; FAMILY PHYSICIAN Student in an Organized Health Care Education/Training Program | DX: S06.6X9S Traumatic subarachnoid hemorrhage with loss of consciousness of unspecified duration, sequela (principal) | CPT/HCPCS: 70450 ==

== ENCOUNTER → 2024-08-09 15:20 | Outpatient (REF) | payer OTHER, SELFPAY ==
[2024-08-09 15:20] LABS: % Basophils 0.3 % (0-2); % Eosinophils 1.8 % (0-6); % Immature Granulocytes 0.1 % (0-0.5); % Lymphocytes 14.4 % (20.5-51.1); % Monocytes 6.8 % (1.7-9.3); % Neutrophils 76.6 % (42.2-75.2); Absolute Eosinophils 0.1 10^3/uL (0-0.7); Absolute Monocytes 0.5 10^3/uL (0.1-0.6); Absolute Neutrophils 5.2 10^3/uL (1.4-6.5); Hematocrit 38.9 % (37.0-47.0); Hemoglobin 13.2 g/dL (12.0-16.0); Mean Corp Hgb Conc. 33.9 g/dL (33.0-37.0); Mean Corpuscular Hgb 35.1 pg (27.0-31.0); Mean Corpuscular Volume 103.5 fL (81.0-99.0); Mean Platelet Volume 9.8 fL (7.4-10.4); Platelet Count 161 10^3/uL (130-400); Red Blood Cell Count 3.76 10^6/uL (4.20-5.40); White Blood Cell Count 6.8 10^3/uL (4.8-10.8)
[2024-08-09 16:08] LABS: ALT (SGPT) 20 U/L (0-35); AST (SGOT) 26 U/L (14-36); Albumin 4.6 g/dl (3.5-5.0); Alkaline Phosphatase 76 U/L (38-126); Blood Urea Nitrogen 21 mg/dl (7-17); Calcium 9.6 mg/dl (8.4-10.2); Carbon Dioxide 24 mmol/L (22-30); Chloride 105 mmol/L (98-107); Direct Bilirubin 0.6 mg/dl (0.0-0.4); Glucose 87 mg/dl (70-99); HDL Cholesterol 36 mg/dl; LDL Cholesterol, Calculated 104 mg/dl; Potassium 3.7 mmol/L (3.5-5.1); Sodium 140 mmol/L (135-145); Total Bilirubin 1.2 mg/dl (0.2-1.3); Total Cholesterol 165 mg/dl (50-199); Total Protein 7.9 g/dl (6.3-8.2); Triglyceride 125 mg/dl (10-149); Very Low Density Lipoprotein 25 mg/dl (0-30); eGFR > 60.00
== END ==
LOC: OIDL 15:20
PROVIDERS: ATTENDING PHYSICIAN Internal Medicine Hematology & Oncology
DX: C50.919 Malignant neoplasm of unspecified site of unspecified female breast (principal); D52.9 Folate deficiency anemia, unspecified
CPT/HCPCS: 80053; 80061; 80076; 85025

== ENCOUNTER 2024-09-04 09:00 | Outpatient (RCR) | payer OTHER, SELFPAY | END 2024-09-04 23:59 | disposition home or self-care (01) | LOC: RST 09:00 | PROVIDERS: ATTENDING PHYSICIAN Internal Medicine; FAMILY PHYSICIAN Internal Medicine | DX: R55 Syncope and collapse (principal); S09.8XXD Other specified injuries of head, subsequent encounter; S06.301D Unspecified focal traumatic brain injury with loss of consciousness of 30 minutes or less, subsequent encounter; Z73.6 Limitation of activities due to disability; R26.2 Difficulty in walking, not elsewhere classified; M62.81 Muscle weakness (generalized); Z91.81 History of falling; R47.02 Dysphasia; R41.841 Cognitive communication deficit | CPT/HCPCS: 92523; 97112; 97163 ==

== ENCOUNTER 2024-09-24 13:03 | Outpatient (RCR) | payer OTHER, SELFPAY | END 2024-09-24 23:59 | disposition home or self-care (01) | LOC: ROT 13:03 | PROVIDERS: ATTENDING PHYSICIAN Internal Medicine; FAMILY PHYSICIAN Internal Medicine | DX: R55 Syncope and collapse (principal); S06.30 Unspecified focal traumatic brain injury; R47.02 Dysphasia; R26.2 Difficulty in walking, not elsewhere classified; M62.81 Muscle weakness (generalized); R41.841 Cognitive communication deficit; Z91.81 History of falling; Z73.6 Limitation of activities due to disability | CPT/HCPCS: 92507; 96125; 97110; 97112; 97116; 97129; 97130; 97167; 97530; 97537 ==

== ENCOUNTER 2024-11-05 11:55 | Outpatient (RCR) | payer OTHER, SELFPAY | END 2024-11-05 23:59 | disposition home or self-care (01) | LOC: ROT 11:55 | PROVIDERS: ATTENDING PHYSICIAN Internal Medicine; FAMILY PHYSICIAN Internal Medicine | DX: S06.30 Unspecified focal traumatic brain injury (principal); R55 Syncope and collapse (principal); S09.8XXS Other specified injuries of head, sequela; R47.02 Dysphasia; Z91.81 History of falling; R26.2 Difficulty in walking, not elsewhere classified; M62.81 Muscle weakness (generalized); R41.841 Cognitive communication deficit; Z73.6 Limitation of activities due to disability; R41.840 Attention and concentration deficit | CPT/HCPCS: 92507; 97110; 97112; 97116; 97129; 97130; 97530; 97535; 97537 ==

== ENCOUNTER 2024-12-06 12:00 | Outpatient (RCR) | payer OTHER, SELFPAY | END 2024-12-06 23:59 | disposition home or self-care (01) | LOC: ROT 12:00 | PROVIDERS: ATTENDING PHYSICIAN Internal Medicine; FAMILY PHYSICIAN Internal Medicine | DX: S06.30 Unspecified focal traumatic brain injury; R41.841 Cognitive communication deficit; R55 Syncope and collapse; R41.840 Attention and concentration deficit; Z73.6 Limitation of activities due to disability; S09.8XXS Other specified injuries of head, sequela; R26.2 Difficulty in walking, not elsewhere classified; R47.02 Dysphasia; Z91.81 History of falling; M62.81 Muscle weakness (generalized) | CPT/HCPCS: 92507; 97110; 97112; 97116; 97129; 97130; 97530; 97537 ==

== ENCOUNTER 2024-12-19 13:41 | Outpatient (RCR) | payer OTHER, SELFPAY | END 2024-12-20 07:13 | disposition home or self-care (01) | LOC: ROT 13:41 | PROVIDERS: ATTENDING PHYSICIAN Internal Medicine; FAMILY PHYSICIAN Internal Medicine | DX: R41.841 Cognitive communication deficit; R41.840 Attention and concentration deficit; R74.02 Elevation of levels of lactic acid dehydrogenase [LDH]; R55 Syncope and collapse; Z73.6 Limitation of activities due to disability; S09.8XXS Other specified injuries of head, sequela; R47.02 Dysphasia; M62.81 Muscle weakness (generalized); S06.30 Unspecified focal traumatic brain injury; R26.2 Difficulty in walking, not elsewhere classified; Z91.81 History of falling | CPT/HCPCS: 92507; 97110; 97112; 97129; 97130; 97530; 97535; 97537 ==

== ENCOUNTER → 2024-12-20 07:31 | Outpatient (REF) | payer OTHER, SELFPAY | LOC: RAD 07:31 | PROVIDERS: ATTENDING PHYSICIAN Student in an Organized Health Care Education/Training Program; FAMILY PHYSICIAN Internal Medicine | DX: I73.9 Peripheral vascular disease, unspecified (principal) | CPT/HCPCS: 93922 ==

== ENCOUNTER → 2025-02-04 12:31 | Outpatient (REF) | payer OTHER, SELFPAY | LOC: WDC 12:31 | PROVIDERS: ATTENDING PHYSICIAN Surgery; FAMILY PHYSICIAN Internal Medicine | DX: Z12.31 Encounter for screening mammogram for malignant neoplasm of breast (principal) | CPT/HCPCS: 77063; 77067 ==

== ENCOUNTER → 2025-02-06 08:49 | Outpatient (REF) | payer OTHER, SELFPAY | LOC: WDC 08:49 | PROVIDERS: ATTENDING PHYSICIAN Surgery; FAMILY PHYSICIAN Internal Medicine | DX: R92.30 Dense breasts, unspecified (principal) | CPT/HCPCS: 76641 ==

== ENCOUNTER → 2025-05-08 13:48 | Outpatient (REF) | payer OTHER, SELFPAY ==
[2025-05-08 15:18] LABS: ALT (SGPT) 20 U/L (0-35); AST (SGOT) 25 U/L (14-36); Albumin 3.8 g/dl (3.5-5.0); Alkaline Phosphatase 80 U/L (38-126); HDL Cholesterol 45 mg/dl; LDL Cholesterol, Calculated 116 mg/dl; Total Protein 7.1 g/dl (6.3-8.2); Very Low Density Lipoprotein 21 mg/dl (0-30)
== END ==
LOC: CLAB 13:48
PROVIDERS: ATTENDING PHYSICIAN Internal Medicine Hematology & Oncology
DX: C50.919 Malignant neoplasm of unspecified site of unspecified female breast (principal); D52.9 Folate deficiency anemia, unspecified; D51.9 Vitamin B12 deficiency anemia, unspecified
CPT/HCPCS: 80061; 80076; 82652

== ENCOUNTER → 2025-05-14 08:43 | Outpatient (REF) | payer OTHER, SELFPAY | LOC: RCS 08:43 | PROVIDERS: ATTENDING PHYSICIAN Student in an Organized Health Care Education/Training Program; FAMILY PHYSICIAN Internal Medicine | DX: I34.0 Nonrheumatic mitral (valve) insufficiency (principal) | CPT/HCPCS: 93306 ==

== ENCOUNTER → 2025-06-12 10:19 | Outpatient (REF) | payer OTHER, SELFPAY ==
[2025-06-12 12:05] LABS: Blood Urea Nitrogen 24 mg/dl (7-17); Calcium 9.8 mg/dl (8.4-10.2); Carbon Dioxide 26 mmol/L (22-30); Chloride 107 mmol/L (98-107); Glucose 76 mg/dl (70-99); Potassium 4.4 mmol/L (3.5-5.1); Sodium 138 mmol/L (135-145); eGFR > 60.00
== END ==
LOC: REG 10:19
PROVIDERS: ATTENDING PHYSICIAN Student in an Organized Health Care Education/Training Program; FAMILY PHYSICIAN Internal Medicine
DX: E78.00 Pure hypercholesterolemia, unspecified (principal)
CPT/HCPCS: 36415; 80048

== ENCOUNTER → 2025-06-20 10:39 | Outpatient (REF) | payer OTHER, SELFPAY | LOC: HWRAD 10:39 | PROVIDERS: ATTENDING PHYSICIAN Neurological Surgery; FAMILY PHYSICIAN Internal Medicine | DX: R41.3 Other amnesia (principal) | CPT/HCPCS: 70450 ==